=== PATIENT | female | born 1975 | race Caucasian/White ===

== ENCOUNTER 2016-12-05 23:19 | Emergency (ER) | payer SELFPAY ==
[2016-12-05] MEDS ORDERED: ONDANSETRON HCL 8 MG TABLET PO ONE (23:47)
[2016-12-05] MEDS ORDERED: MECLIZINE HCL 25 MG TABLET PO ONE (23:47)
--- NOTE | 2016-12-05 23:50 | ERNOTE ---
Dizziness ER Record Date of Service: 12/05/16 Presenting Symptoms: dizziness, near-fainting, vertigo Time Seen by Provider: 12/05/16 23:21 Source: patient Immunizations: IMMUNIZATION HX Immunizations Up to Date Yes History of Influenza Vaccine No Hx Pneumococcal Vaccination No Allergies/Adverse Reactions: Allergies Allergy/AdvReac Type Severity Reaction Status Date / Time Penicillins Allergy Verified 12/05/16 23:32 Home Medications: HOME MEDICATIONS Ondansetron HCl [Zofran] 4 mg PO Q4H PRN #30 tablet 12/06/16 [Last Taken Unknown ] - History of Present Illness Narrative: This is a 41-year-old female who comes to the emergency department at 11:30 at night complaining of dizziness. The patient states she's had dizziness for the last 2 months however it seemed to gotten progressively worse. It seems to be sporadic, it can occur when she is moving around, standing or changing position , or can happen when she has her head completely still laying in bed. Opening and closing her eyes do not seem to have any impact on it. She does not describe it as a sensation of vertigo. She describes it as a sensation of the world moving around her. The patient has associated nausea but has not vomited. The patient denies any recent illnesses. 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 She has had vertigo in the past and says this is quite different. She denies chest pain shortness of breath and vomiting although she has nausea no symptoms. No recent trauma. No vision changes. No rashes. Review of Systems - Review of Systems Constitutional: Present: no symptoms reported EYE: Present: no symptoms reported ENT: Present: no symptoms reported Respiratory: Present: no symptoms reported Cardiology: Present: no symptoms reported Gastrointestinal/Abdominal: Present: nausea Genitourinary: Present: no symptoms reported Musculoskeletal: Present: no symptoms reported Skin: Present: no symptoms reported Neurological: Present: dizziness/light-headedness Endocrine: Present: no symptoms reported Hematologic/Lymphatic: Present: no symptoms reported Psych: Present: no symptoms reported - Patient's Past Medical History Patient History - Medical: Anxiety, Depression, GERD Patient History - Cardiac/Respiratory: No pertinent hx Patient History - Cancer: No Hx of Cancer Patient History - Surgical Procedures: Cholecystectomy LMP (females 10-50): 3 weeks - Social History Living Situations: home Abuse History: No History of abuse Psych History: Hx of Anxiety, Hx of Depression Smoking Status: Never smoker Alcohol Use: none Drug Use: none - Immunizations Immunizations Up to Date: Yes Hx Pneumococcal Vaccination: No History of Influenza Vaccine: No Physical Exam - Physical Exam General Appearance: Present: wd/wn, alert, no apparent distress Head Exam: Present: normal inspection, no evidence of injury Eye Exam: Normal inspection: bilateral, PERRL: bilateral, EOMI: bilateral Ears, Nose, Throat: Present: normal ENT inspection, normal pharynx Neck: Present: normal inspection, nontender, supple Respiratory: Present: no respiratory distress, normal breath sounds, no accessory muscle use, chest nontender, lungs clear Cardiovascular/Chest: Present: regular rate, rhythm, no murmur, normal peripheral pulses Gastrointestinal/Abdominal: Present: normal bowel sounds, nontender, soft, other - the patient's abdomen is soft nondistended and nontender. She does not have a Lees's sign. There is absolutely no tenderness over the gallbladder fossa or the epigastric area. No rebound or guarding. Rectal Exam: Present: deferred Back Exam: Present: normal inspection, no CVA tenderness, no vertebral tenderness Extremity Exam: Present: normal inspection, non-tender, no edema Neurological Exam: Present: other - cranial nerves are intact and normal motor is intact normal sensation is intact and normal cerebellar function is intact and normal the patient has no significant horizontal or vertical nystagmus. No rotary nystagmus. Skin Exam: Present: normal color, warm/dry Lymphatic Exam: Present: no adenopathy ED Progress - Results and Orders Patient's Lab Results:: I have reviewed the patient's lab results. - Vital Signs Patient's Vital Signs:: I have reviewed the patient's vital signs. Vital Signs: Vital Signs 12/05/16 23:20 Temperature 37.5 C Pulse Rate 84 Respiratory 16 Rate Blood Pressure 151/90 O2 Sat by Pulse 98 Oximetry - CT/Ultrasound CT/Ultrasound Narrative: CT of the head does not demonstrate any acute intracranial abnormalities. - Progress/Reassessment Chief Complaint: Dizziness Progress:: Improved Progress Note-Subjective: 12/06/16 00:52 Patient says that she is very minimally improved from when she came in. This is after receiving Antivert and Zofran. I discussed with the patient that I have no specific cause for her symptoms. At this time I do not believe a CAT scan of her head is likely to be of benefit. She has a doctor that she can follow-up with. I am going to him my treatment primarily at symptomatic treatment with the understanding she is going to follow up with her family doctor within the next week or 2 or she will return to the emergency department. If she continues to have progression of her symptoms she may indeed need a CAT scan. It is my sincere hopes that with the bit more time in controlling the nausea the other symptoms will get better. Departure Clinical Impression: Dizziness - Departure Disposition: Home self-care Condition: Stable Instructions: Vertigo, [id number] Additional Instructions: As we discussed, the tests and studies which I did hear are all essentially normal. I do not have a definite explanation for your symptoms, but I am convinced that you do not have any emergency medical conditions which would require U to be admitted to the hospital. I want you to call your family doctor and set up a follow-up appointment. You can take the prescribed Zofran to help with nausea. If one tablet does not work he may take 2 if 2 do not work he may take 3 do not take more than 3 tablets every 4 hours. Certainly if you develop any new concerning symptoms she should return to the emergency department. Try to make sure you're eating and drinking enough. Prescriptions: Ondansetron HCl [Zofran] 4 mg PO Q4H PRN #30 tablet PRN Reason: Nausea
[2016-12-05] MEDS ORDERED: ONDANSETRON HCL 8 MG TABLET ONE (23:55)
[2016-12-06] LABS: Hematocrit 39.6 % (37.0-47.0); Hemoglobin 14.1 gm/dL (12.5-16.0); Mean Cell Volume 83.7 fl (78-100); Mean Corpuscular Hemoglobin 29.8 pg (27-31); Mean Corpuscular Hgb Conc 35.6 g/dl (32-36); Mean Platelet Volume 9.4 fl (6.0-9.5); Neutrophil # 6.8 K/mm3 (1.3-6.0); Neutrophil % 62.8 % (42-75.0); Platelet Count 229 K/mm3 (150-450); Red Blood Count 4.73 M/mm3 (4.2-5.4); Red Cell Distribution Width 12.2 % (11.5-14.0); White Blood Count 10.7 K/mm3 (4.0-10.5)
[2016-12-06 00:21] LABS: Albumin * 3.4 gm/dl (3.4-5.0); Anion Gap 16.8 mmol/L (6.8-13.8); BUN/Creatinine Ratio 19.4 (9.0-21.6); Bilirubin, Total 1.7 mg/dL (0.0-1.1); Ca. Corrected For Albumin 9.3 mg/dL (8.4-10.2); Calcium * 9.1 mg/dL (7.9-10.9); Carbon Dioxide 24.7 mmol/L (24-32.6); Potassium 3.5 mmol/L (3.4-4.6); Total Protein 7.1 gm/dL (6.2-8.2)
[2016-12-06 00:23] LABS: Urine Bilirubin Negative (NEGATIVE); Urine Blood Negative /ul (NEGATIVE); Urine Ketone Negative (NEGATIVE); Urine Nitrite Negative (NEGATIVE); Urine Protein Negative (NEGATIVE); Urine Specific Gravity 1.015 SP.GR. (1.005-1.010); Urine Urobilinogen Normal (NORMAL)
[2016-12-06 00:25] LABS: Urine Appearance Clear; Urine Color Yellow; Urine RBC 0-5 /hpf (0-5); Urine WBC None Seen /hpf (0-5)
[2016-12-06 00:26] LABS: Urine Bacteria 1+
[2016-12-06 00:30] LABS: Cocaine Ur Negative (NEGATIVE); Urine Barbiturate Negative (NEGATIVE); Urine Benzodiazepines Negative (NEGATIVE); Urine Opiates Negative (NEGATIVE); Urine PCP Negative (NEGATIVE); Urine THC Negative (NEGATIVE)
[2016-12-06 02:58] VITALS: BP 101/60
== END 2016-12-06 01:50 | disposition home or self-care (01) ==
LOC: ER 23:19
DX: R42 Dizziness and giddiness (principal)